=== PATIENT | male | born 1995 | race American Indian/Alaskan Native ===

== ENCOUNTER 2016-11-18 14:01 | Emergency (ER) | payer MEDICAID, OTHER ==
[2016-11-18 14:02] VITALS: BMI 20.7
[2016-11-18 14:32] VITALS: TEMP 98.1
[2016-11-18] MEDS ORDERED: Sodium Chloride 0.9% 500 ML IV STA (14:58)
[2016-11-18 15:13] LABS: BASO # 0.05 K/mm3 (0.0-2.0); BASO % 0.7 % (0.0-3.0); EOS # 0.1 (0.0-0.7); EOS % 1.9 % (1.5-5.0); GRAN # 3.35 (1.4-6.5); GRAN % 48.1 % (50.0-68.0); HEMOGLOBIN 13.3 g/dL (14.0-18.0); LYMPH # 2.9 (1.2-3.4); LYMPH % 41.7 % (22.0-35.0); MEAN CELL VOLUME 87.3 fl (80.0-105.0); MEAN CORPUSCULAR HEMOGLOBIN 28.6 pg (25.0-35.0); MEAN CORPUSCULAR HGB CONC 32.8 g/dl (31.0-37.0); MEAN PLATELET VOLUME 9.2 fl (7.0-11.0); MONO # 0.5 (0.1-0.6); MONO % 7.6 % (1.0-6.0); PLATELET COUNT 304 10^3/uL (120.0-450.0); RBC 4.65 10^6/uL (3.5-6.1); RED CELL DISTRIBUTION WIDTH 12.5 % (11.5-14.5)
--- NOTE | 2016-11-18 15:21 | ED PDOC ---
Arrival/HPI - General Chief Complaint: Abdominal Pain Time Seen by Provider: 11/18/16 14:57 - History of Present Illness Narrative History of Present Illness (Text): 11/18/16 15:20 Patient is a 21 y/o M presenting with 2 day history of vomiting and diarrhea. He reports scant periumbilical abdominal pain. Denies fever, dysuria, scrotal swelling, penile discharge. Reports vomitus is food stuff and diarrhea is watery and non-bloody. Denies travel outside [place]. Denies recent antibiotic use. Past Medical History - Infectious Disease Hx of Infectious Diseases: None - Tetanus Immunization Tetanus Immunization: Unknown - Reproductive Currently : No - Past Medical History Past Medical History: No Previous - Psychiatric Hx Depression: No Hx Emotional Abuse: No Hx Physical Abuse: No Hx Substance Use: Yes (Quit 3 weeks ago) - Past Surgical History Past Surgical History: No Previous - Suicidal Assessment Feels Threatened In Home Enviroment: No Family/Social History Family/Social History: No Known Family HX Smoking Status: Current Some Days Smoker Hx Alcohol Use: No Hx Substance Use: Yes (Quit 3 weeks ago) Substance used: marijuana Hx Substance Use Treatment: No Allergies/Home Meds Allergies/Adverse Reactions: Allergies No Known Allergies Allergy (Verified 03/22/13 09:59) Home Medications: Home Meds Medication Instructions Recorded Confirmed No Known Home Med 11/18/16 11/18/16 Review of Systems - Review of Systems Constitutional: absent: Fatigue, Weight Change, Fevers Eyes: absent: Vision Changes ENT: absent: Hearing Changes Respiratory: absent: SOB, Cough, Sputum, Wheezing Cardiovascular: absent: Chest Pain, Palpitations Gastrointestinal: Diarrhea, Nausea, Vomiting. absent: Abdominal Pain Genitourinary Male: Other (no penile discharge or scrotal swelling). absent: Dysuria, Frequency, Hematuria, Urinary Output Changes Musculoskeletal: absent: Arthralgias, Back Pain Neurological: absent: Headache, Dizziness Physical Exam Vital Signs Temp Pulse Resp BP Pulse Ox 11/18/16 14:17 98.1 F 64 18 113/74 98 Temperature: Afebrile Blood Pressure: Normal Pulse: Regular Respiratory Rate: Normal Appearance: Positive for: Well-Appearing, Non-Toxic, Comfortable Pain Distress: None Mental Status: Positive for: Alert and Oriented X 3 - Systems Exam Head: Present: Atraumatic, Normocephalic Pupils: Present: PERRL Extroacular Muscles: Present: EOMI Conjunctiva: Present: Normal Mouth: Present: Moist Mucous Membranes Neck: Present: Normal Range of Motion Respiratory/Chest: Present: Clear to Auscultation, Good Air Exchange. No: Respiratory Distress, Accessory Muscle Use Cardiovascular: Present: Regular Rate and Rhythm, Normal S1, S2. No: Murmurs Abdomen: No: Tenderness, Distention, Rebound, Guarding Upper Extremity: Present: Normal Inspection Lower Extremity: Present: Normal Inspection Neurological: Present: GCS=15, CN II-XII Intact Psychiatric: Present: Alert, Oriented x 3 Medical Decision Making ED Course and Treatment: 11/18/16 17:41 Patient's abdomen is soft NT/ND with vomiting and diarrhea. Labs grossly normal. After pepcid, toradol and IVF, patient feels better and wants to go home.. - Lab Interpretations Lab Results: 11/18/16 14:50 11/18/16 14:50 Lab Results 11/18/16 14:50: Sodium 139, Potassium 4.2, Chloride 100, Carbon Dioxide 27, Anion Gap 16, BUN 13, Creatinine 1.1, Est GFR ( Amer) > 60, Est GFR (Non- Af Amer) > 60, Random Glucose 82, Calcium 10.0, Phosphorus 3.8, Magnesium 2.0, Total Bilirubin 0.8, AST 29, ALT 19, Alkaline Phosphatase 54, Total Protein 7.7 , Albumin 4.8, Globulin 2.9, Albumin/Globulin Ratio 1.7, Lipase 142 11/18/16 14:50: WBC 7.0, RBC 4.65, Hgb 13.3 L, Hct 40.6 L, MCV 87.3, MCH 28.6, MCHC 32.8, RDW 12.5, Plt Count 304, MPV 9.2, Gran % 48.1 L, Lymph % (Auto) 41.7 H, [place] % (Auto) 7.6 H, Eos % (Auto) 1.9, Baso % (Auto) 0.7, Gran # 3.35, Lymph # 2.9, [place] # 0.5, Eos # 0.1, Baso # 0.05 - Medication Orders Current Medication Orders: Discontinued Medications Famotidine (Pepcid) 20 mg IVP STAT STA Stop: 11/18/16 14:59 Last Admin: 11/18/16 16:10 Dose: 20 mg Sodium Chloride (Sodium Chloride 0.9%) 500 mls @ 999 mls/hr IV .Q31M STA Stop: 11/18/16 15:28 Last Admin: 11/18/16 15:00 Dose: 999 mls/hr Ketorolac Tromethamine (Toradol) 30 mg IVP STAT STA Stop: 11/18/16 14:59 Last Admin: 11/18/16 16:09 Dose: 30 mg Disposition/Present on Arrival - Present on Arrival Any Indicators Present on Arrival: No History of DVT/PE: No History of Uncontrolled Diabetes: No Urinary Catheter: No History of Decub. Ulcer: No History Surgical Site Infection Following: None - Disposition Have Diagnosis and Disposition been Completed?: Yes Diagnosis: Gastroenteritis Disposition: HOME/ ROUTINE Disposition Time: 17:30 Patient Plan: Discharge Patient Problems: Current Active Problems Problem Status Onset Gastroenteritis Acute Condition: GOOD Discharge Instructions (ExitCare): Gastroenteritis (ED) Additional Instructions: Follow-up with PMD within 2 days. Advance diet slowly. Return to ED if condiiton worsens. Referrals: PCP,NO [Primary Care Provider] - Follow up with primary Forms: [facility] ([place]), WORK NOTE
[2016-11-18 15:23] LABS: ALB/GLOB RATIO 1.7 (1.1-1.8); ALBUMIN 4.8 g/dL (3.0-4.8); ALT/SGPT 19 U/L (7-56); AST/SGOT 29 U/L (15-59); BLOOD UREA NITROGEN 13 mg/dL (7-21); GFR AFRICAN-AMERICAN > 60; GFR NON-AFRICAN AMERICAN > 60; LIPASE 142 U/L (23-300)
[2016-11-18 17:50] VITALS: RESP 17
[2016-11-18 17:51] VITALS: BP 114/85; PULSE 63; O2SAT 100
== END 2016-11-18 17:50 | disposition home or self-care (01) ==
LOC: ED 14:01
DX: K52.9 Noninfective gastroenteritis and colitis, unspecified (principal)
CPT/HCPCS: 80053; 83690; 83735; 84100; 85025; 96374; 96375; 99285; J1885; J7040